=== PATIENT | male | born 1950 | race Caucasian/White ===

== ENCOUNTER → 2018-05-18 | Outpatient (CLI) | payer MEDICARE ==
[~2018-05-18] MED LIST: NAPROSYN500 MG PO; NOHOMEMEDICATIONS
--- NOTE | 2018-05-27 13:03 | TST ---
[place] [address] TREADMILL STRESS TEST Name: KHANG OROZCO Room: [facility]#: [id number] Admission: 05/18/18 Attend Phys: JANY VITALE Discharge: Date of : 46 Date of Service: 05/18/18 1647 Report #: [id number] THIS REPORT FOR: //name// CC: JANY JACOBS DATE OF SERVICE: 05/18/2018 Exercise Stress Test ORDERING PHYSICIAN: Jany Jacobs, nurse practitioner. INDICATIONS: Abnormal EKG. CARDIAC HISTORY: Negative. RISK FACTORS: Include age. No cardiac medications. Exercise time was 5 minutes and 2 seconds on a standard [place] protocol. He did achieve 7 METs. Test was terminated due to fatigue. There were no chest pain symptoms. He did have shortness of breath. Hemodynamics: Resting blood pressure 190/87 with heart rate 78, peak blood pressure is 216/89 with heart rate of 143. Recovery blood pressure is 181/89 with heart rate of 83. Resting electrocardiogram is normal. During exercise, there was some mild nonspecific upsloping ST segment depression, not meeting criteria for ischemia. Occasional PVCs were noted. Recovery was normal. IMPRESSION: 1. Clinical portion was negative. 2. Electrocardiographic portion was negative. 3. Exercise capacity is reduced. CONCLUSION: This exercise ECG stress test is negative for ischemia at the level of exercise achieved. <ELECTRONICALLY SIGNED> By: Khang Simmons MD, FACC 05/27/18 1303 1647 [id number] Neil Womack MD, [facility] /nt
== END ==
LOC: M.CRD 12:40
DX: R94.31 Abnormal electrocardiogram [ECG] [EKG] (principal)

== ENCOUNTER 2019-04-22 13:52 | Emergency (ER) | payer MEDICARE ==
[~2019-04-22] VITALS: Ht 182.9 cm; Wt 93.9 kg
[2019-04-22] MEDS ORDERED: NEURONTIN 300300 M1 PO (14:05)
[2019-04-22 14:39] LABS: ABSOLUTE BASOPHILS 0.1 thou/uL (0.0-0.2); ABSOLUTE EOSINOPHILS 0.3 thou/uL (0.0-0.7); ABSOLUTE LYMPHOCYTES 1.7 thou/uL (0.8-5.3); ABSOLUTE MONOCYTES 0.5 thou/uL (0.0-1.2); ABSOLUTE NEUTROPHILS 2.6 thou/uL (1.6-8.1); BASOPHILS 1.4 %; EOSINOPHILS 5.9 %; HEMATOCRIT 39.1 % (42.0-52.0); HEMOGLOBIN 13.5 gm/dL (14.0-18.0); LYMPHOCYTES 32.9 %; MCH 35.6 pg (26.0-34.0); MCHC 34.6 g/dL (28.0-37.0); MCV 102.8 fL (80.0-100.0); MONOCYTES 9.6 %; MPV 8.1 fl. (7.2-11.1); NUCLEATED RBCS 0 /100WBC; PLATELET COUNT* 274 thou/uL (150-400); POLYS 50.2 %; RDW-CV 12.5 % (10.5-14.5); WBC 5.1 thou/uL (4.0-11.0)
[2019-04-22 14:59] LABS: ANION GAP 15 mmol/L (7-16); BUN 9 mg/dL (7-18); CALCIUM 9.2 mg/dL (8.5-10.1); CHLORIDE 102 mmol/L (98-107); CO2 21 mmol/L (21-32); CREATININE 0.9 mg/dL (0.6-1.3); GLUCOSE 87 mg/dL (70-99); POTASSIUM 3.7 mmol/L (3.5-5.1); SODIUM 138 mmol/L (136-145)
[2019-04-22 15:09] LABS: ALBUMIN 4.2 g/dL (3.4-5.0); ALKALINE PHOSPHATASE 55 U/L (46-116); CHOLESTEROL 213 mg/dL (<200); HDL CHOLESTEROL 98 mg/dL (>40); LDL CHOLESTEROL 106 mg/dL (<100); LIPASE 152 U/L (73-393); SERUM ASSESSMENT Clear; SGOT 35 U/L (15-37); SGPT 36 U/L (30-65); TC:HDL 2.2 Ratio (Not establshd); TOTAL BILIRUBIN 0.8 mg/dL (<0.1-1.0); TOTAL PROTEIN 7.4 g/dL (6.4-8.2); TRIGLYCERIDE 49 mg/dL (<150); TROPONIN-I LEVEL <0.06 ng/mL (<0.06); VLDL 10 mg/dL (<40)
[2019-04-22 15:15] LABS: URINE BILIRUBIN NEGATIVE (Negative); URINE BLOOD NEGATIVE (Negative); URINE CLARITY CLEAR; URINE COLOR YELLOW; URINE GLUCOSE-RANDOM NEGATIVE (Negative); URINE KETONES TRACE (Negative); URINE LEUKOCYTES-REFLEX NEGATIVE (Negative); URINE NITRITE-REFLEX NEGATIVE (Negative); URINE PROTEIN NEGATIVE (Negative); URINE UROBILINOGEN 0.2 E.U./dl (0.2-1.0)
[2019-04-22] MEDS ORDERED: NORCO 5-325 TA1 EAC1 PO (15:20)
[2019-04-22 15:38] VITALS: BP 154/77
--- NOTE | 2019-04-23 10:35 | EKG ---
[place] [address] ELECTROCARDIOGRAM REPORT Name: KHANG OROZCO Room: [facility]#: [id number] Admission: 04/22/19 Attend Phys: Discharge: 04/22/19 Date of : 46 Report #: [id number] THIS REPORT FOR: //name// [facility] ED Test Date: 2019-04-22 Test Time: 15:06:11 Pat Name: KHANG OROZCO Department: Room: Gender: M [employer]: : [id number] Requested By: Dave Nieves Order Number: [id number] MD: Khang Simmons Measurements Intervals [place] Rate: 74 P: 50 GA: 215 QRS: -3 QRSD: 105 T: 24 QT: 428 QTc: 475 Interpretive Statements Sinus rhythm Borderline prolonged GA interval No previous ECG available for comparison Electronically Signed On 04-23-2019 10:35:41 CDT by Khang Simmons [email or web address] <ELECTRONICALLY SIGNED> By: Khang Simmons MD, [facility] 04/23/19 1035 1506 1506 Khang Simmons MD, FACC /EPI
== END 2019-04-22 15:38 | disposition home or self-care (01) ==
LOC: M.ERS 13:52
PROVIDERS: Physician Assistant
DX: M53.3 Sacrococcygeal disorders, not elsewhere classified (principal); G62.9 Polyneuropathy, unspecified